=== PATIENT | male | born 2000 | race Hispanic/Latino ===

== ENCOUNTER 2025-06-23 20:42 | Emergency (ER) | payer OTHER ==
[~2025-06-23] VITALS: Ht 172.7 cm; Wt 120.2 kg
--- NOTE | 2025-06-23 22:31 | NUR ---
PATIENT CARE ASSUMED AT THIS TIME.
--- NOTE | 2025-06-23 22:50 | HMCIMG ---
EXAM: CR right Tibia and fibula, 4 View. CLINICAL HISTORY: Injury COMPARISON: None provided. FINDINGS: BONES: Patella david deformity. Correlation clinically recommended JOINTS: No dislocation. The joint spaces are normal. SOFT TISSUES: The soft tissues are unremarkable. IMPRESSION: Patella david deformity. Correlation clinically recommended /[place]
--- NOTE | 2025-06-23 22:50 | HMCIMG ---
EXAM: CR right Knee, 3 View. CLINICAL HISTORY: INJURY COMPARISON: None provided. FINDINGS: BONES: Patella david deformity. JOINTS: Mild degenerative changes SOFT TISSUES: Small bone fragment in the medial soft tissues adjacent to the distal femur. CT should be considered IMPRESSION: 1. Patella david deformity. 2. Small bone fragment in the medial soft tissues adjacent to the distal femur. CT should be considered 3. Mild degenerative changes /[place]
--- NOTE | 2025-06-24 01:07 | HMCIMG ---
EXAM: CT left Knee without IV contrast. CLINICAL HISTORY: Left knee injury. TECHNIQUE: Axial images were acquired through the left knee without IV contrast. Reformatted images were reviewed. COMPARISON: Left knee x-ray dated 06/23/2025. FINDINGS: BONES: No evidence of cortical defect or fracture line is seen along the visualized bones of the knee joint. Patella david. JOINTS: No dislocation. A linear hyperdense osseous focus measuring approximately 2.1 cm with a transverse orientation is seen medial to the patella within the knee joint. Mild knee joint effusion. SOFT TISSUES: Mild to moderate subcutaneous and myofascial edema is noted predominantly in the anterior aspect of the knee. IMPRESSION: A linear hyperdense osseous focus with a transverse orientation is seen medial to the patella within the left knee joint. Likely representing a bony fragment or calcified focus. Suggested MRI of the knee joint, if clinically indicated. Mild to moderate subcutaneous and myofascial edema in the anterior aspect of the left knee. Mild knee joint effusion. /[place]
--- NOTE | 2025-06-24 01:19 | ERN ---
ED Note History of Present Illness Stated Complaint: C/O PAIN TO LEFT KNEE; INJURY DURING SOCCER PRACTI Chief Complaint: Knee Injury/Swelling Time Seen by MD: 01:16 Dictation: 25-year-old male no past medical history here for evaluation of left knee pain. Patient was playing soccer when he heard a snap. He was able to play afterwards however he was having worsening pain when he went home thus he decided to come to the emergency room for evaluation. No fever no cough no shortness a breath. No nausea vomiting diarrhea. No chest pain or palpitations. No prior injury to the like in the past before no med taken prior to arrival Allergies: Coded Allergies: No Known Allergies (Unverified Allergy, Unknown, 06/23/25) Past Medical History Past Medical History: Hypothyroid Surgical History: None Review of System Dictation Positive for left knee pain Review of Systems: was completed, & the rest were negative. Initial Vital Sign VS Vital Signs Date Time Temp Pulse Resp B/P (MAP) Pulse Ox O2 Delivery O2 Flow Rate FiO2 06/23/25 20:47 98.8 89 20 136/93 99 Room Air 06/23/25 22:31 0 21 Physical Exam Dictation GENERAL APPEARANCE NAD, activity normal for age, well developed/ well nourished, no cyanosis, pallor, or diaphoresis. EYES lids/conjunctiva normal. EARS/NOSE/THROAT Mucous membranes moist, nares normal, lips/teeth normal uvula midline without oral pharyngeal erythema, exudate or swelling TMs normal bilaterally. No lymphangitis/lymphedema. HEAD/NECK normocephalic atraumatic, no facial trauma, neck is supple. RESPIRATORY respiratory effort normal, speaks in full sentences, no tripod position, no accessory muscle use. Lungs clear to auscultation without rhonchi, wheezes, rales CARDIAC Regular rate and rhythm, no edema. ABDOMINAL Soft, ND/NT. No evidence of fluid wave. No pulsatile masses on exam, rebound tenderness, Pearce sign or pain over Mcburney's point. MUSCLES/EXTREMITIES decreased range of motion of left knee secondary to pain. Negative anterior drawer test. SKIN Warm, pink and dry. No rashes, dermatoses, petechiae or lesions. NEUROLOGICAL Speech is clear and appropriate. Normal level of consciousness. Gait and coordination are normal. 5/5 strength in all extremities. PSYCH Normal mood and affect. Judgement/competence is appropriate Results (Laboratory/Radiology) Laboratory/Radiology EXAM: CT left Knee without IV contrast. CLINICAL HISTORY: Left knee injury. TECHNIQUE: Axial images were acquired through the left knee without IV contrast. Reformatted images were reviewed. COMPARISON: Left knee x-ray dated 06/23/2025. FINDINGS: BONES: No evidence of cortical defect or fracture line is seen along the visualized bones of the knee joint. Patella david. JOINTS: No dislocation. A linear hyperdense osseous focus measuring approximately 2.1 cm with a transverse orientation is seen medial to the patella within the knee joint. Mild knee joint effusion. SOFT TISSUES: Mild to moderate subcutaneous and myofascial edema is noted predominantly in the anterior aspect of the knee. IMPRESSION: A linear hyperdense osseous focus with a transverse orientation is seen medial to the patella within the left knee joint. Likely representing a bony fragment or calcified focus. Suggested MRI of the knee joint, if clinically indicated. Mild to moderate subcutaneous and myofascial edema in the anterior aspect of the left knee. Mild knee joint effusion. /[place] ED Course ED Course Orders Procedure Category Date Status Time Knee 3vws Lt RAD 06/23/25 Resulted 21:01 Tibia/Fibula 2vws Lt RAD 06/23/25 Resulted 21:02 Ketorolac 60mg/2ml PHA 06/23/25 Complete (Toradol 60mg/2ml) 21:30 Ct Low Ext W/O CT 06/23/25 Resulted Contrast 22:55 Current Medications Medications (Trade) Dose Ordered Sig/[place] Route PRN Reason Start Time Stop Time Status Last Admin Dose Admin Ketorolac Tromethamine (toRADol 60MG/ 2ML) 60 mg ONCE ONCE IM 06/23/25 21:30 06/23/25 21:31 DC 06/23/25 22:50 Vital Signs Date Time Temp Pulse Resp B/P (MAP) Pulse Ox O2 Delivery O2 Flow Rate FiO2 06/23/25 22:31 98.8 89 20 136/93 99 Room Air* 0 21 06/23/25 20:47 98.8 89 20 136/93 99 Room Air Medical Decision Making MDM 25-year-old male here for evaluation of left knee pain after playing soccer. Received sign-out from Dr. [place]. Pending CT scan. Likely discharge home with knee splint. 0127: Discussed imaging with the patient. Advised to follow up with the PCP and sports Medicine/orthopedics for follow up and likely MRI. No acute findings that warrants a admission. Patient requesting no meds at this time. We will discharge home. All questions answered DX & DISP Disposition: Discharge Departure Impression: Primary Impression: Left knee sprain Condition: Stable Scripts Methocarbamol (Methocarbamol) 750 Mg Tablet 1 TAB PO TID for Pain for 7 Days, #21 TAB 0 Refills Prov: KYLIE TOLEDO MD 06/24/25 Referrals: SELF,REFERRAL (PCP) KYLIE TOLEDO MD Jun 24, 2025 01:19
[2025-06-24] MEDS ORDERED: METH-812 PO (01:21)
[2025-06-24 01:41] VITALS: BP 132/88; PULSE 82; RESP 16; TEMP 98.8; O2SAT 9
== END 2025-06-24 01:44 | disposition home or self-care (01) ==
LOC: EDH 20:42
DX: S83.92XA Sprain of unspecified site of left knee, initial encounter (principal); E03.9 Hypothyroidism, unspecified; X58.XXXA Exposure to other specified factors, initial encounter; Y93.66 Activity, soccer; Y92.322 Soccer field as the place of occurrence of the external cause; Y99.8 Other external cause status
CPT/HCPCS: 99285; 29505; 73700; 73562; 73590; 96372; J1885